=== PATIENT | female | born 1995 | race Two or more races ===

== ENCOUNTER 2019-02-23 13:10 | Emergency (ER) | payer MEDICAID ==
[~2019-02-23] VITALS: Ht 154.9 cm; Wt 75.0 kg
[2019-02-23 13:24] VITALS: BP 118/85
[2019-02-23] MEDS ORDERED: FLUORESCEIN SODIUM 1MG/STRIP OP ONE (16:15)
[2019-02-23] MEDS ORDERED: TETRACAINE 0.5% OPHTH DROPS 4ML OP ONE (16:15)
== END 2019-02-23 16:34 | disposition home or self-care (01) ==
LOC: ER 13:10
DX: H00.011 Hordeolum externum right upper eyelid (principal)
CPT/HCPCS: 99283

== ENCOUNTER 2019-12-09 18:39 | Emergency (ER) | payer MEDICAID, OTHER ==
[~2019-12-09] VITALS: Ht 154.9 cm; Wt 79.0 kg
[2019-12-10] MEDS ORDERED: KETOROLAC 60MG/2ML VIAL IM ONE (01:45)
[2019-12-10 02:14] LABS: CLARITY URINE CLOUDY (CLEAR); COLOR URINE YELLOW (YELLOW); KETONES URINE NEGATIVE (NEGATIVE); LEUKOCYTE ESTERASE URINE 3+ (NEGATIVE); NITRITE URINE NEGATIVE (NEGATIVE); OCCULT BLOOD URINE 2+ (NEGATIVE); PH URINE 6.5 (4.5-8.0); PROTEIN URINE NEGATIVE (NEGATIVE); SPECIFIC GRAVITY URINE 1.004 (1.005-1.030); UROBILINOGEN URINE 0.2 E.U./dL (0.2-1.0)
[2019-12-10 02:43] VITALS: BP 108/75
== END 2019-12-10 03:20 | disposition home or self-care (01) ==
LOC: ER 20:18
DX: N12 Tubulo-interstitial nephritis, not specified as acute or chronic (principal)
CPT/HCPCS: 81003; 81025; 87077; 87086; 87186; 96372; 99283; J1885